=== PATIENT | male | born 1990 | race Caucasian/White ===

== ENCOUNTER 2022-02-22 23:54 | Emergency (ER) | payer OTHER ==
[~2022-02-22] VITALS: Ht 182.9 cm; Wt 95.3 kg
[2022-02-23 00:15] VITALS: BP 125/81
--- NOTE | 2022-02-23 00:20 | NUR ---
COVID SWAB COLLECTED AND SENT TO LAB
--- NOTE | 2022-02-23 01:43 | NUR ---
COVID POSITIVE; DR POZO DO AWARE
--- NOTE | 2022-02-23 01:56 | NUR ---
PATIENT IS D/C'D TO [facility] IN [facility] IN STABLE CONDITION
== END 2022-02-23 03:24 ==
LOC: ER 23:59
DX: U07.1 COVID-19 (principal)
CPT/HCPCS: 99283; 87426; C9803